=== PATIENT | male | born 1950 | race Caucasian/White ===

== ENCOUNTER 2017-03-11 09:28 | Emergency (ER) | payer MEDICARE, BC ==
[~2017-03-11] VITALS: Ht 167.6 cm; Wt 89.4 kg
[2017-03-11 09:35] VITALS: BP 128/86
== END 2017-03-11 10:20 | disposition home or self-care (01) ==
LOC: ER 09:28
DX: L03.012 Cellulitis of left finger (principal); I10 Essential (primary) hypertension
CPT/HCPCS: 10060